=== PATIENT | male | born 1930 | race Caucasian/White ===

== ENCOUNTER 2017-11-05 07:56 | Day surgery (SDC) | payer OTHER ==
[~2017-11-05] VITALS: Ht 157.5 cm; Wt 63.3 kg
[2017-11-05] VITALS (12 sets, daily range): BP systolic 116–132; BP diastolic 69–86; PULSE 66–120; RESP 18–20; TEMP 97.7–99.2; O2SAT 98–100
[2017-11-05] MEDS ORDERED: PROPOFOL 200 MG/20 ML AMP OTHER ONE (07:57)
[2017-11-05] MEDS ORDERED: calcium P-ARTICULR (08:23)
[2017-11-05] MEDS ORDERED: ECASA81 PO (08:23)
[2017-11-05] MEDS ORDERED: ATOR10TA15 PO (08:23)
[2017-11-05] MEDS ORDERED: DILT120T PO (08:23)
[2017-11-05] MEDS ORDERED: OCUVTAB4 PO (08:23)
[2017-11-05] MEDS ORDERED: VITA250T3 PO (08:23)
[2017-11-05] MEDS ORDERED: CLOP75TA PO (08:23)
[2017-11-05] MEDS ORDERED: TAMS0.4C4 PO (08:23)
[2017-11-05] MEDS ORDERED: VITA200C3 PO (08:23)
[2017-11-05] MEDS ORDERED: OMEGCAP PO (08:23)
[2017-11-05] MEDS ORDERED: METOPROLOL TARTRATE 25 MG TAB PO PRN (08:30)
[2017-11-05] MEDS ORDERED: POVIDONE IODINE 5% (ANTISEPSIS KIT) 4 APPLICATIONS EACH NARE PRN (08:30)
[2017-11-05] MEDS ORDERED: LACTATED RINGER'S 1000 ML IV PRN (08:30)
[2017-11-05] MEDS ORDERED: INSULIN HUMAN REGULAR 1,000 UNITS/10 ML VIAL SQ PRN (08:30)
[2017-11-05] MEDS ORDERED: SODIUM CHLORID 0.9% 500 ML IV PRN (08:30)
[2017-11-05] MEDS ORDERED: CHLORHEXIDINE GLUCONATE 2 % 1 PACK (2 CLOTHS) TOPICAL PRN (08:30)
[2017-11-05] MEDS ORDERED: NS 1000 ML IV SCH (09:15)
[2017-11-05] MEDS ORDERED: CHLORHEXIDINE GLUCONATE 2 % 1 PACK (2 CLOTHS) TOPICAL SCH (09:15)
[2017-11-05] MEDS ORDERED: VANCOMYCIN 1000 MG/NS 250 ML IV SCH ×2 (09:15)
[2017-11-05] MEDS ORDERED: POVIDONE IODINE 5% (ANTISEPSIS KIT) 4 APPLICATIONS EACH NARE SCH (09:15)
[2017-11-05] MEDS ORDERED: ceFAZolin 2 GM PREMIX 50 ML IV SCH (09:15)
[2017-11-05] MEDS ORDERED: MUPIROCIN 2% OINT 1 APPLIC/GM SYR NASAL SCH (09:15)
[2017-11-05 09:28] LABS: AUTOMATED NEUTROPHIL # 7.8 TH/MM3 (1.8-7.7); BASOPHIL # 0.1 TH/MM3 (0-0.2); BASOPHIL % 0.5 % (0.0-2.0); EOSINOPHIL # 0.3 TH/MM3 (0-0.4); EOSINOPHIL % 2.3 % (0.0-4.0); HEMATOCRIT 35.7 % (39.0-51.0); HEMOGLOBIN 11.5 GM/DL (13.0-17.0); LYMPH % 25.7 % (9.0-44.0); LYMPHOCYTE # 3.3 TH/MM3 (1.0-4.8); MEAN CELL VOLUME 67.3 FL (80.0-100.0); MEAN CORPUSCULAR HEMOGLOBIN 21.7 PG (27.0-34.0); MEAN CORPUSCULAR HGB CONC 32.2 % (32.0-36.0); MEAN PLATELET VOLUME 8.1 FL (7.0-11.0); MONO % 9.9 % (0.0-8.0); MONOCYTE # 1.3 TH/MM3 (0-0.9); NEUT % 61.6 % (16.0-70.0); PLATELET COUNT 407 TH/MM3 (150-450); RED CELL DISTRIBUTION WIDTH 18.8 % (11.6-17.2); WHITE BLOOD COUNT 12.7 TH/MM3 (4.0-11.0)
[2017-11-05 09:38] LABS: INTERNATIONAL NORMALIZED RATIO 1.1 RATIO; PROTHROMBIN TIME - PATIENT 11.1 SEC (9.8-11.6)
[2017-11-05 09:45] LABS: BICARBONATE 25.3 MEQ/L (21.0-32.0); CALCIUM 8.7 MG/DL (8.5-10.1)
[2017-11-05] MEDS ORDERED: LIDOCAINE HCL 2% 20 ML VIAL ONE (10:39)
[2017-11-05] MEDS ORDERED: PROPOFOL 200 MG/20 ML AMP ONE (10:47)
[2017-11-05 11:08] LABS: CREATININE 0.87 MG/DL (0.60-1.30)
[2017-11-05] MEDS ORDERED: ePHEDrine/NS 25 MG/5 ML SYRINGE ONE (11:13)
--- NOTE | 2017-11-05 12:24 | CATHPROC ---
Patient Name: QUINITN TRAORE Study #: [id number] Initial MD: Sampson Laureano Date of : 1930 Study Date: 11/05/2017 Cardiac Catheterization Report 11/05/2017 12:24:15 PM Financial #: [id number] 1 of 9 Patient Name: QUINTIN TRAORE Study #: [id number] Initial MD: Sampson Laureano Date of : 1930 Study Date: 11/05/2017 Entire Case Report Patient Information Patient Name QUINTIN TRAORE Date of 1930 Age 87 years Financial # [id number] Gender M AlternateID Lab Number 6 Room Number DC08 Height (in) 62.0 Height (cm) 157.4 BSA 1.64 Weight (lbs) 140.1 Weight (kg) 63.7 Patient Address/Phone Number Home Address [facility] Home Phone Number [phone] [facility] [address] Study Information Study Number Admission Scheduled Start Study Start [id number] Nov 05 2017 7:56AM 11/05/2017 Nov 05 2017 10:06AM [facility] Cardiac Pacer/ICD Admit Source Facility Department Other [facility] - Operating Cost Clerk Physician and Clinical Staff Initial Sampson Menezes Welder Production Line Arc Jojo Hurtado,RN Welder Production Line Arc Gwyn Cid RCIS(BS) Other Anesthesia, MEASURER MACHINE Other Josué CLAIRE, Jennifer Evans RN Scrub Yasmine Everett RCIS TECH2 Procedures Performed Procedure Lead Revision 11/05/2017 12:24:15 PM Financial #: [id number] 2 of 9 Patient Name: QUINTIN TRAORE Study #: [id number] Initial MD: Sampson Laureano Date of : 1930 Study Date: 11/05/2017 Equipment Time Piece Work Checker Description Size Mfg Part Number Used/Scraped [id number] 11:57 [employer] IVONNE, HEMOSTAT 1 GRAM Used *[id number] 10:09 [employer] SUTURE, STRIP PLUS 1/2" * Used *[id number] 10:09 MEDLINE PACER ADHESIVE, MASTISOL 2/3CC 2/3CC 0523-48 Used 10:09 MEDLINE PACER KAY, LIMB * 2530 *[id number] Used [id number] 10:09 MEDLINE PACER PACK, PACER CUSTOM * Used *[id number] 10:09 MEDLINE PACER PEN, SKIN DUAL W/ RULER * Used *[id number] 10:52 Needle Sponge Count 2 2 Used 10:54 Needle Sponge Count 2 22 Used 11:03 Needle Sponge Count 23 1 Used 10:53 Needle Sponge Count 25 1 Used 12:01 Needle Sponge Count 3 33 Used [id number] *[id number] SUTURE, 3-0 VICRYL [SH] ([id number]) SUTURE, 3-0 VICRYL [SH] ([id number]) SUTURE, 4-0 MONOCRYL [PS2] (Y496G) [id number] 10:09 [employer],WARM AIR CCL * Used *[id number] [facility] PAD, ELECTROSURGICAL 10:09 * [id number] *[id number] Used [employer]GICAL GROUNDING ORANGE 4254-5138 10:09 [employer]. / * Used *50825 Equipment Model, Serial, Lot Number and Expiration Data Description Model Number Serial Number Lot Number Expiration Date IVONNE, HEMOSTAT [address] [id number] 07-07-2022 Insurance Information Insurance Payor Private Health Insurance Third Alliance Party Third Alliance Party Number [employer] G[employer]US O HUMCRHMO 11/05/2017 12:24:15 PM Financial #: [id number] 3 of 9 Patient Name: QUINTIN TRAORE Study #: [id number] Initial MD: Sampson Laureano Date of : 1930 Study Date: 11/05/2017 History: Allergies Allergy Reaction codeine nisoldipine procaine meperidine Sulfa (Sulfonamide Antibiotics) sulfur sulfacetamide History: Risk Factors Dyslipidemia Yes Labs Hgb (g/dl) Hct (%) WBC (l/cumm) Platelets (thousands) 11.60-17.00 35.00-51.00 4.00-11.00 150.00-450.00 11.5 35.7 12.7 407 Glucose (mg/dl) 74.00-106.00 98 Na (meq/l) K (meq/l) 136.00-145.00 3.50-5.10 140 3.6 INR (PTT:PT) 0.90-1.10 1.1 CPK-MB (ng/ML) 0.50-3.60 Not Drawn Medication Medication Total Dose (Bolus/Oral) Medication Total Dosage/Unit 2% XYLOCAINE 40 mL 11/05/2017 12:24:15 PM Financial #: [id number] 4 of 9 Patient Name: QUINTIN TRAORE Study #: [id number] Initial MD: Sampson Laureano Date of : 1930 Study Date: 11/05/2017 Medications (Bolus/Oral) Medication Time Given Dosage/Unit Administered By Reason 2% XYLOCAINE 11/05/2017 11:19:45 AM 40 mL Sampson Laureano 40 mL 2% XYLOCAINE given in lab by Sampson Laureano in Left shoulder via Subcutaneous. Ordered by Sampson Laureano. Medication (Drip) Medication Time Given Dosage/Unit Concentration/Unit Diluent (ml) Solution ANCEF 11/05/2017 10:29:26 AM 2 g Patient arrived with 2 g ANCEF infusing via Peripheral IV. VANCOMYCIN DRIP 11/05/2017 10:31:07 AM 1 g 1 g VANCOMYCIN DRIP given in lab by Richy Moses RN via Peripheral IV. Ordered by Sampson Laureano. Reaso n: As per physicians verbal order. Initial Case Assessment Cardiovascular HR Rhythm NIBP 91 AF 144/69 Edema Present Skin color Skin None Normal Warm Dry Circulatory - Right Pulses Dorsalis Pedis 1 Scale (0,1,2,3,4,d) Circulatory - Left Pulses Dorsalis Pedis 1 Scale (0,1,2,3,4,d) Circulatory - Lower Extremities Color Lower Right Color Lower Left Normal Normal Neurological State Oriented to time-place- Alert Moves all extremities person Comment: EMMONAK Respiration - General Respiration Rate SpO2 (%) (B/min) 19 98 11/05/2017 12:24:15 PM Financial #: [id number] 5 of 9 Patient Name: QUINTIN TRAORE Study #: [id number] Initial MD: Sampson Laureano Date of : 1930 Study Date: 11/05/2017 Final Case Assessment Cardiovascular HR NIBP 78 101/58 Edema Present Skin color Skin None Normal Warm Dry Circulatory - Right Pulses Dorsalis Pedis 1 Scale (0,1,2,3,4,d) Circulatory - Left Pulses Dorsalis Pedis 1 Scale (0,1,2,3,4,d) Circulatory - Lower Extremities Color Lower Right Color Lower Left Normal Normal Neurological State Drowsy Moves all extremities Comment: EMMONAK Respiration - General Respiration Rate SpO2 (%) (B/min) 18 99 Chronological Log Time Study Chronological Log 10:29:16 Patient arrived via Bed. 10:29:17 Patient Name, D.O.B, / Armband Verified By R.N. 10:29:17 Consent signed by the physician and the patient and verified by the Operating Cost Clerk staff. 10:29:18 History and physical on the chart. 10:29:18 Pre-op and post- op instructions given; patient acknowledges understanding of instructions. 10:29:18 Verbal Stimulation=2 Physical Stimulation=2 Airway=2 Respiration=2 TOTAL=8. (0=absent, 1=li mited, 2=present) 10:29:19 Presedation assessment performed by Operating Cost Clerk RN. 10:29:20 Anesthesia at bedside. Assumes care of patient. 11/05/2017 12:24:15 PM Financial #: [id number] Patient Name: QUINTIN TRAORE Study #: [id number] Initial MD: Sampson Laureano Date of : 1930 Study Date: 11/05/2017 10:29:21 Immediate Presedation assesment performed by physician. 10:29:22 Patient has been NPO for More than 6Hrs. 10:29:22 Skin Breakdown- none per pt 10:29:25 A # 20 IV was noted in the Antecubital (right). Grade = 0 0.69% with NaCl @ KVO 10:29:26 Patient arrived with 2 g ANCEF infusing via Peripheral IV. 10:29:50 Bovie ground pad applied to: Right Thigh 10:30:23 Patient Warmer Placed on the Table. 10:30:23 Dickson Prominences Protected Assessment: Initial Case, HR=91 BPM, Rhythm=AF, ZTTT=916/69 mmhg, Edema=None, Color=Normal, Ski n = Warm, Dry Right Pulses: Tony Ped=1 Left Pulses: Tony Ped=1 10:30:30 Lower Right Extremities: Color=Normal Lower Left Extremities: Color=Normal Neurological: State=Alert, Ox3, RAND, Comment=EMMONAK Respiration: Resp=19 B/min, SpO2=98 % 10:30:49 A # 20 IV was noted in the Antecubital (right). Grade = 0 0.9% NaCl @ KVO 1 g VANCOMYCIN DRIP given in lab by Richy Moses RN via Peripheral IV. Ordered by Sampson Laureano. Reason: As per :31:07 physicians verbal order. 10:31:31 2% CHLORHEXIDINE GLUCONATE WASH AND NASAL SWIPE DONE PRIOR TO PROCEDURE. 10:34:00 Table restraints applied according to hospital policy First Sponge And Instrument Count Done by Yasmine Everett, MONEY POSITION OFFICER TECH2. Hypo's: 2, Sponges: 23, Bovie/scratch: 2 10:50:09 Sutures: 5, Blades: 3, Instruments: 25, Syveck Patches: ~SYVECK PATCH~ Verified with EDUARDO CLAIRE 2 sponges were used to mop puddled prep and discarded leaving 23. 10:55:26 Left Upper Chest Prepped Times Two. 11:01:16 A sterile drape was applied after a 5 minute drying time 11:01:49 MD paged 11:03:56 MD responded 11:05:04 Reference ECG taken 11:16:32 MD arrived. Time Out. Correct patient, procedure, procedure equipment, site and side verified with physicia n present. Time 11:19:01 concurred by MD, individual staff and MEASURER MACHINE. Time Out #2 - Consents verified, patient in correct position, all results are labled and displa yed, safety precautions 11::43 taken, antibiotics administered. Time out concurred by MD, individual staff and MEASURER MACHINE in procedu re 11:19:43 Case Start 11:19:45 40 mL 2% XYLOCAINE given in lab by Sampson Laureano in Left shoulder via Subcutaneous. Ordered by Sampson Laureano. 11:20:39 Surgical Incision Made. 11:23:07 Switched out bovie for plasma blade to create the pocket, adding 1 more bovie to the count 11:26:45 A pocket was created at the Lt. upper chest. 11:32:46 Disconnecting the lead 11:36:30 The RV Lead Was Repositioned. 11/05/2017 12:24:15 PM Financial #: [id number] 7 of 9 Patient Name: QUINTIN TRAORE Study #: [id number] Initial MD: Sampson Laureano Date of : 1930 Study Date: 11/05/2017 11:36:53 Lead placement verified under fluoroscopy 11:39:02 The RV lead impedance and threshold being tested. 11:43:13 The RV lead was sutured to the fascia. 11:45:32 The RA Lead Was Revised. 11:47:37 Lead placement verified under fluoroscopy 11:48:39 The Atrial lead impedance and threshold is being tested. 11:55:20 Reconnecting the device 11:57:31 Ivonne powder administered into pocket Second Sponge And Instrument Count Done by Yasmine Everett, MONEY POSITION OFFICER TECH2. 11:58:54 Hypo's: 2, Sponges: 23, Bovie/scratch: 3 Sutures: 5, Blades: 3, Verified with EDUARDO CLAIRE 2 sponges were used to mop puddled prep and discarde d leaving 23. 11:59:03 The pocket is being closed. 12:03:12 Holding Area notified of successful intervention. 12:03:13 Bedside Report will be given. 12:03:29 DOCU called. Spoke to Ronn 12:03:57 Implant Procedure was performed. 12:04:10 A Lead Revision . (Dual) Both leads repositioned 12:14:53 Case End Final Sponge And Instrument Count Done by Yasmine Everett, MONEY POSITION OFFICER TECH2. 12:16:01 Hypo's: 2, Sponges: 23, Bovie/scratch: 3 Sutures: 5, Blades: 3, Instruments: ~INSTRU~, Syveck Patches: ~SYVECK PATCH~ Verified with KF 12:17:47 Steri-strips and a sterile dressing applied to site. 12:19:02 No case complications noted. 12:19:03 Cine recording checked. 12:19:07 Bedside Report will be given. Assessment: Final Case, HR=78 BPM, IHTP=366/58 mmhg, Edema=None, Color=Normal, Skin = Warm, Dry Right Pulses: Tony Ped=1 Left Pulses: Tony Ped=1 12:25:07 Lower Right Extremities: Color=Normal Lower Left Extremities: Color=Normal Neurological: State=Drowsy, RAND, Comment=EMMONAK Respiration: Resp=18 B/min, SpO2=99 % 12:26:29 Patient moved to bed 12:28:40 Defibrillator and ground pads removed. Skin intact. Patient transported to DOCU via bed on supplemental oxygen at 4L/min NC in stable condition wit valdemar RN and tech 12:30:48 accompanying. 11/05/2017 12:24:15 PM Financial #: [id number] Patient Name: QUINTIN TRAORE Study #: [id number] Initial MD: Sampson Laureano Date of : 1930 Study Date: 11/05/2017 End Study - Contrast Media Used In Study Contrast Total Opened (mL) Total Used (mL) Total Wasted (mL) Unspecified 0 0 0 End Study - Radiation Exposure Fluoro Time (minutes) 2.2 End Study - Patient Disposition Complications Transferred To No Telemetry Bed 11/05/2017 12:24:15 PM Financial #: [id number]
[2017-11-05] MEDS ORDERED: traMADol HCL 50 MG TAB PO PRN (12:30)
[2017-11-05] MEDS ORDERED: ACETAMINOPHEN 325 MG TAB PO PRN (12:30)
--- NOTE | 2017-11-05 12:30 | MA ---
cc: Sampson Laureano MD, Alan S MD DATE: 11/05/2017 DESCRIPTION OF PROCEDURE: Repositioning of dislodged atrial and ventricular pacemaker leads OPERATIVE NOTES: The patient was brought to the operating suite in the fasting state after having signed informed consent. The left upper chest was prepped and draped as per policy and anesthetized with 1% lidocaine. A transverse incision was made over the preexisting generator and using careful blunt dissection, including with the PlasmaBlade, the generator was freed from the subcutaneous pocket and the leads were freed from extensive scar tissue in the pocket. The suture sleeves were loosened. The leads were disconnected from the pacemaker generator. The ventricular lead was unscrewed and then repositioned at the right ventricular apex where a good current of injury, stimulation threshold (0.7 volts) and sensitivity (6.8 millivolts) were demonstrated. The lead was secured into place using 2-0 silk ties down to the pectoralis fascia. The atrial lead was then unscrewed and then repositioned in the right atrial lateral wall region where good current of injury, and stable impedance (503 ohms) was demonstrated. Sensitivity was measured at 1.7 millivolts. Stimulation threshold could not be obtained as the patient is in atrial fibrillation. The leads were then connected to the pacemaker generator, which is a Biotronik model. The leads and the generator were placed back into the subcutaneous pocket, which was closed using 3-0 Vicryl interrupted stitches in 2 layers to close the subcutaneous tissue and then 4-0 Monocryl running stitch to close the subcuticular tissue. Overlapping Steri-Strips and a dressing were applied. There were no apparent, immediate complications. CONCLUSIONS: Successful atrial and ventricular pacemaker lead repositioning, pacemaker pocket revision. Of note, the patient is in atrial fibrillation. MD STAR Rene/KIEL , 12:18 PM , 12:29 PM [facility] CENTERChrystal
[2017-11-05] MEDS ORDERED: POTASSIUM CHLORIDE 20 MEQ CONTROLLED RELEASE TAB PO ONE (20:00)
--- NOTE | 2017-11-05 20:24 | RADRPT ---
EXAM DATE: 11/05/2017 8:17 PM EDT AGE/SEX: 87 years / Male INDICATIONS: Post pacemaker lead placement. CLINICAL DATA: This is the patient's initial encounter. Patient reports that signs and symptoms have been present for 1 day and indicates a pain score of Nonresponsive. MEDICAL/SURGICAL HISTORY: . A-fib. Pacemaker. COMPARISON: [facility], XR CHEST PA AND LAT, 10/29/2017. . FINDINGS: There is a pacemaker overlying the left chest. There is no pneumothorax. There are some chronic inter stitial changes bilaterally. No new or focal areas of parenchymal consolidation are demonstrated. No evidence of pleural effusions. The heart size is stable. No significant changes compared to the prior exam. CONCLUSION: 1. Stable examination compared to the prior study. 2. No evidence of pneumothorax. Electronically signed by: Duncan Dunham MD 11/05/2017 8:22 PM EDT
[2017-11-05] MEDS ORDERED: ATORVASTATIN 10 MG TAB PO SCH (21:00)
[2017-11-05] MEDS ORDERED: VANCOMYCIN INJ 1,000 MG in SODIUM CHLOR 0.9% 250 ML INJ 250 ML IV SCH (23:30)
[2017-11-06] VITALS (15 sets, daily range): BP systolic 146–147; BP diastolic 80–84; PULSE 82–90; RESP 16–20; TEMP 98.1–99.1; O2SAT 98–99
--- NOTE | 2017-11-06 07:52 | PD.CARD.PN ---
Subjective Subjective Remarks Denies pain, dyspnea, palpitations, dizziness. Objective Medications Item Value Date Time Aspirin 81 mg 11/06/17 0900 (Ecotrin Ec) DAILY/PO Clopidogrel 75 mg 11/06/17 0900 Bisulfate DAILY/PO (Plavix) Diltiazem HCl 240 mg 11/06/17 0900 (Cardizem Cd) DAILY/PO Atorvastatin 10 mg 11/05/172099 Calcium HS/PO 11/05/172035 (Lipitor) Current Medications Medications (Trade) Dose Ordered Sig/Diya Route Start Time Stop Time Status Last Admin Lactated Ringer's 1,000 ml @ 30 mls/hr Q24H PRN IV 11/05/17 08:30 11/08/17 08:29 Sodium Chloride 500 ml @ 30 mls/hr [id number] PRN IV 11/05/17 08:30 11/08/17 08:29 (Lopressor) 25 mg EXAMINING CHAIR ASSEMBLER PRN PO 11/05/17 08:30 11/08/17 08:29 (Betadine 5% Antisepsis Kit) 1 applic EXAMINING CHAIR ASSEMBLER PRN EACH NARE 11/05/17 08:30 11/08/17 08:29 11/05/17 09:03 (Chlorhexidine 2% Cloth) 3 pack EXAMINING CHAIR ASSEMBLER PRN TOPICAL 11/05/17 08:30 11/08/17 08:29 11/05/17 09:03 (NovoLIN R INJ) See Protocol Table ... EXAMINING CHAIR ASSEMBLER PRN SQ 11/05/17 08:30 11/08/17 08:29 Sodium Chloride 1,000 ml @ 30 mls/hr Q24H IV 11/05/17 09:15 Cefazolin Sodium/ Dextrose 50 ml @ 100 mls/hr EXAMINING CHAIR ASSEMBLER IV 11/05/17 09:15 11/08/17 09:14 11/05/17 10:29 Vancomycin HCl 1000 mg/Sodium Chloride 250 ml @ 250 mls/hr EXAMINING CHAIR ASSEMBLER IV 11/05/17 09:15 11/08/17 09:14 11/05/17 10:31 (Betadine 5% Antisepsis Kit) 2 applic EXAMINING CHAIR ASSEMBLER EACH NARE 11/05/17 09:15 11/08/17 09:14 (Bactroban Nasal 2% Oint) 1 applic EXAMINING CHAIR ASSEMBLER NASAL 11/05/17 09:15 11/08/17 09:14 (Chlorhexidine 2% Cloth) 3 pack EXAMINING CHAIR ASSEMBLER TOPICAL 11/05/17 09:15 11/08/17 09:14 (Tylenol) 325 mg Q6H PRN PO 11/05/17 12:30 (Ultram) 50 mg Q6HR PRN PO 11/05/17 12:30 (Ecotrin Ec) 81 mg DAILY PO 11/06/17 09:00 (Lipitor) 10 mg HS PO 11/05/17 21:00 11/05/17 20:36 (Plavix) 75 mg DAILY PO 11/06/17 09:00 (Flomax) 0.4 mg DAILY PO 11/06/17 09:00 (Cardizem Cd) 240 mg DAILY PO 11/06/17 09:00 Vital Signs / I&O Vital Signs Date Time Temp Pulse Resp B/P (MAP) Pulse Ox O2 Delivery O2 Flow Rate FiO2 11/06/17 06:00 86 11/06/17 05:00 83 11/06/17 04:00 84 11/06/17 03:25 99.1 90 20 146/80 (102) 98 11/06/17 03:00 86 11/06/17 02:00 89 11/06/17 01:00 89 11/06/17 00:00 88 11/05/17 23:03 99.2 86 20 121/71 (88) 98 11/05/17 23:00 107 11/05/17 22:00 84 11/05/17 21:00 118 11/05/17 20:00 120 11/05/17 19:34 98.3 111 20 116/69 (85) 100 11/05/17 19:00 107 11/05/17 18:23 110 11/05/17 17:22 95 11/05/17 17:11 97.7 87 18 116/76 (89) 99 11/05/17 13:45 100 Room Air 11/05/17 08:45 98.0 106 18 129/83 (98) 100 I/O 11/05/17 11/05/17 11/05/17 11/06/17 11/06/17 11/06/17 07:00 15:00 23:00 07:00 15:00 23:00 Intake Total 250 ml 240 ml Output Total 250 ml 550 ml Balance 0 ml -310 ml Intake Oral 250 ml 240 ml Output Urine Total 250 ml 550 ml Physical Exam Pacer site clean, dry, intact, no hematoma. Minimal tenderness. No erythema. Laboratory Laboratory Tests Test 11/05/17 08:30 White Blood Count 12.7 TH/MM3 Red Blood Count 5.30 MIL/MM3 Hemoglobin 11.5 GM/DL Hematocrit 35.7 % Mean Corpuscular Volume 67.3 FL Mean Corpuscular Hemoglobin 21.7 PG Mean Corpuscular Hemoglobin Concent 32.2 % Red Cell Distribution Width 18.8 % Platelet Count 407 TH/MM3 Mean Platelet Volume 8.1 FL Neutrophils (%) (Auto) 61.6 % Lymphocytes (%) (Auto) 25.7 % Monocytes (%) (Auto) 9.9 % Eosinophils (%) (Auto) 2.3 % Basophils (%) (Auto) 0.5 % Neutrophils # (Auto) 7.8 TH/MM3 Lymphocytes # (Auto) 3.3 TH/MM3 Monocytes # (Auto) 1.3 TH/MM3 Eosinophils # (Auto) 0.3 TH/MM3 Basophils # (Auto) 0.1 TH/MM3 CBC Comment DIFF FINAL Differential Comment Prothrombin Time 11.1 SEC Prothromb Time International Ratio 1.1 RATIO Activated Partial Thromboplast Time 27.4 SEC Blood Urea Nitrogen 16 MG/DL Creatinine 0.87 MG/DL Random Glucose 98 MG/DL Calcium Level 8.7 MG/DL Sodium Level 140 MEQ/L Potassium Level 3.6 MEQ/L Chloride Level 105 MEQ/L Carbon Dioxide Level 25.3 MEQ/L Anion Gap 10 MEQ/L Estimat Glomerular Filtration Rate 83 ML/MIN Assessment and Plan Problem List: (1) Status post placement of cardiac pacemaker ICD Codes: Z95.0 - Presence of cardiac pacemaker Status: Acute Plan: Pacer re-interrogation pending. Pacer site OK. If pacing parameters suboptimal, have recommended going back to OR for new leads. (2) Wide-complex tachycardia ICD Codes: I47.2 - Ventricular tachycardia Status: Acute Plan: Coverage called for VT last night. Rhythm strips more consistent with ventricular paced salvoes. (3) Paroxysmal atrial fibrillation ICD Codes: I48.0 - Paroxysmal atrial fibrillation Status: Chronic Plan: Stable. No HR control issues. Patient felt by Dr. Treviño to be poor candidate for oral anticoagulation therapy. Continue Cardizem. Code Status full code Discussed Condition With patient Sampson Laureano MD November 06, 2017 07:52
[2017-11-06] MEDS ORDERED: DILTIAZEM-CD 240 MG CAP ER PO SCH (09:00)
[2017-11-06] MEDS ORDERED: CLOPIDOGREL 75 MG TAB PO SCH (09:00)
[2017-11-06] MEDS ORDERED: TAMSULOSIN HCL 0.4 MG CAP PO SCH (09:00)
[2017-11-06] MEDS ORDERED: ASPIRIN EC 81 MG TABEC PO SCH (09:00)
[2017-11-06] MEDS ORDERED: CALC12502 PO (10:25)
--- NOTE | 2017-11-06 14:10 | EKG ---
Date Performed: 11/05/2017 Time Performed: 18:29:34 PTAGE: 87 years EKG: Atrial fibrillation with rapid ventricular response with PVC(s) Left axis deviation Possibl e anterior infarct - age undetermined Inferior T wave changes are nonspecific Low QRS voltages in pre cordial leads Abnormal ECG PREVIOUS TRACING : 11/05/2017 08.52 DOCTOR: Cisco Berg Interpretating Date/Time 11/06/2017 14:09:20
--- NOTE | 2017-11-06 14:33 | EKG ---
Date Performed: 11/05/2017 Time Performed: 08:52:26 PTAGE: 87 years EKG: Atrial fibrillation with rapid ventricular response Demand atrial pacing. Leftward axis Inf erior T wave changes are nonspecific Low QRS voltages in precordial leads Abnormal ECG NO PREVIOUS TRACING DOCTOR: Cisco Berg Interpretating Date/Time 11/06/2017 14:31:51
== END 2017-11-06 14:37 | disposition home or self-care (01) ==
LOC: HDOC 07:56 → HDIC 07:58 → HCIS 17:00 → HDOC 11-06 14:37
PROVIDERS: ATTEND Internal Medicine Cardiovascular Disease
DX: Z45.018 Encounter for adjustment and management of other part of cardiac pacemaker (principal); T82.120A Displacement of cardiac electrode, initial encounter; I49.5 Sick sinus syndrome; I65.29 Occlusion and stenosis of unspecified carotid artery; I34.0 Nonrheumatic mitral (valve) insufficiency; I47.2 Ventricular tachycardia; G89.4 Chronic pain syndrome; G62.9 Polyneuropathy, unspecified; I35.1 Nonrheumatic aortic (valve) insufficiency; I73.9 Peripheral vascular disease, unspecified; I48.91 Unspecified atrial fibrillation; D64.9 Anemia, unspecified; Z79.82 Long term (current) use of aspirin
CPT/HCPCS: 00530; 33215; 33222; 71045; 80048; 85025; 85610; 85730; 93005; J0690; J3370; J7050

== ENCOUNTER 2017-11-10 09:14 | Observation (INO) | payer OTHER, MEDICAID ==
[2017-11-10] VITALS (10 sets, daily range): BP systolic 108–171; BP diastolic 58–92; PULSE 88–145; RESP 14–24; TEMP 97.6–98.7; O2SAT 98–100
[~2017-11-10] VITALS: Ht 162.6 cm; Wt 70.0 kg
[~2017-11-10 09:14] MED LIST: ATOR10TA15 PO; CALC12502 PO; CLOP75TA PO; DILT120T PO; ECASA81 PO; OCUVTAB4 PO; OMEGCAP PO; TAMS0.4C4 PO; VITA200C3 PO; VITA250T3 PO
[2017-11-10] MEDS ORDERED: SODIUM CHLORIDE 0.9% FLUSH 10 ML FLUSH IVF PRN (09:45)
[2017-11-10] MEDS ORDERED: ASPIRIN 81 MG CHEW TAB PO ONE (09:45)
[2017-11-10] MEDS ORDERED: DILTIAZEM-CD 240 MG CAP ER PO ONE (09:45)
[2017-11-10 10:04] LABS: AUTOMATED NEUTROPHIL # 8.9 TH/MM3 (1.8-7.7); BASOPHIL # 0.1 TH/MM3 (0-0.2); BASOPHIL % 0.6 % (0.0-2.0); EOSINOPHIL # 0.3 TH/MM3 (0-0.4); EOSINOPHIL % 1.9 % (0.0-4.0); HEMATOCRIT 34.4 % (39.0-51.0); HEMOGLOBIN 10.8 GM/DL (13.0-17.0); LYMPH % 21.8 % (9.0-44.0); LYMPHOCYTE # 2.9 TH/MM3 (1.0-4.8); MEAN CORPUSCULAR HEMOGLOBIN 21.5 PG (27.0-34.0); MEAN CORPUSCULAR HGB CONC 31.5 % (32.0-36.0); MEAN PLATELET VOLUME 7.9 FL (7.0-11.0); MONO % 9.5 % (0.0-8.0); MONOCYTE # 1.3 TH/MM3 (0-0.9); NEUT % 66.2 % (16.0-70.0); PLATELET COUNT 430 TH/MM3 (150-450); RED BLOOD COUNT 5.05 MIL/MM3 (4.50-5.90); RED CELL DISTRIBUTION WIDTH 19.3 % (11.6-17.2); WHITE BLOOD COUNT 13.4 TH/MM3 (4.0-11.0)
--- NOTE | 2017-11-10 10:11 | RADRPT ---
EXAM DATE: 11/10/2017 10:02 AM EDT AGE/SEX: 87 years / Male INDICATIONS: Cough and bilateral chest pain after recent pacemaker placement. CLINICAL DATA: This is the patient's initial encounter. Patient reports that signs and symptoms have been present for 2 days and indicates a pain score of 6/10. MEDICAL/SURGICAL HISTORY: . Atrial fibrillation. Pacemaker. COMPARISON: [facility] [place], [place]/05/[place]. . FINDINGS: A single AP view of the chest demonstrates the lungs to be symmetrically aerated without evidence of mass, infiltrate or effusion. Dual lead pacemaker. Heart size appears normal. Osseous structures are intact. CONCLUSION: Negative examination. Electronically signed by: Sandy Lopez MD 11/10/2017 10:10 AM EDT
[2017-11-10 10:16] LABS: INTERNATIONAL NORMALIZED RATIO 1.1 RATIO; PROTHROMBIN TIME - PATIENT 11.2 SEC (9.8-11.6)
[2017-11-10 10:41] LABS: ALBUMIN 2.8 GM/DL (3.4-5.0); AST (GOT) 15 U/L (15-37); BICARBONATE 24.3 MEQ/L (21.0-32.0); BLOOD UREA NITROGEN 17 MG/DL (7-18); CALCIUM 8.3 MG/DL (8.5-10.1); CHLORIDE 105 MEQ/L (98-107); CREATININE 0.74 MG/DL (0.60-1.30); GLOMERULAR FILTRATION RATE 100 ML/MIN (>89); GLUCOSE,RANDOM 109 MG/DL (74-106); SODIUM (NA) 140 MEQ/L (136-145)
[2017-11-10 10:46] LABS: ALKALINE PHOSPHATASE 76 U/L (45-117); ALT (GPT) 16 U/L (12-78); TOTAL BILIRUBIN ADULT 0.5 MG/DL (0.2-1.0); TOTAL PROTEIN 7.1 GM/DL (6.4-8.2); TROPONIN I LESS THAN 0.02 NG/ML (0.02-0.05)
[2017-11-10] MEDS ORDERED: METOPROLOL TARTRATE 5 MG/5 ML VIAL IV PUSH STA (10:52)
--- NOTE | 2017-11-10 13:09 | PD ---
HPI Chief Complaint: Chest Pain Time Seen by Provider: 09:26 Travel History International Travel<30 days: No Contact w/Intl Traveler<30days: No Traveled to known affect area: No History of Present Illness HPI Patient is an 87-year-old male who comes in complaining of chest pain. He says the pain has been on and off since having revision of his pacemaker done last week. Does report some occasional shortness of breath. He denies nausea or vomiting. Patient is a poor historian. He did not take his Cardizem this morning. Severity is mild to moderate. PFSH Past Medical History Cancer: Yes (PROSTATE, NONHODGKINS LYMPHOMA) Cardiovascular Problems: Yes (AFIB, MR, PM, SSS) Chest Pain: No Diabetes: No Gastrointestinal Disorders: No Glaucoma: No Hepatitis: No Hiatal Hernia: No Hypertension: No Respiratory: No Integumentary: No Thyroid Disease: No Past Surgical History Cardiac Surgery: Yes (pacemaker ) Thoracic Surgery: Yes (PM INSERT-MARYURI) Other Surgery: Yes Social History Alcohol Use: No Tobacco Use: No Substance Use: No Allergies-Medications (Allergen,Severity, Reaction): Coded Allergies: sulfacetamide (Verified Allergy, Severe, 11/10/17) sulfur (Verified Allergy, Severe, 11/10/17) Sulfa (Sulfonamide Antibiotics) (Unverified Allergy, Unknown, 11/10/17) codeine (Unverified Allergy, Unknown, 11/10/17) meperidine (Unverified Allergy, Unknown, 11/10/17) procaine (Unverified Allergy, Unknown, 11/10/17) Reported Meds & Prescriptions Reported Meds & Active Scripts Active Reported Levofloxacin 500 Mg Tablet 500 Mg PO DAILY Levofloxacin 500 Mg Tablet 500 Mg PO DAILY Calcium (Oyster Shell) 500 Mg Calcium (1250 Mg) Tab 500 Mg PO DAILY Vitamin E 200 Unit Cap 400 Units PO DAILY Vitamin C (Ascorbic Acid) 250 Mg Tab 500 Mg PO Tamsulosin (Tamsulosin HCl) 0.4 Mg Cap 0.4 Mg PO DAILY Preservision Areds (Multiple Vitamins W/ Minerals) 1 Tab 1 Tab PO DAILY [place]-3 Fish Oil/Vitamin (Fish Oil-Cholecalciferol) 1,000-1,000 Mg Cap 1 Cap PO DAILY Diltiazem (Diltiazem HCl) 120 Mg Tab 240 Mg PO DAILY Clopidogrel (Clopidogrel Bisulfate) 75 Mg Tab 75 Mg PO DAILY Atorvastatin (Atorvastatin Calcium) 10 Mg Tab 10 Mg PO HS Aspirin DR (Aspirin) 81 Mg Tabdr 81 Mg PO DAILY Review of Systems Except as stated in HPI: all other systems reviewed are Neg General / Constitutional: No: Fever, Chills HENT: No: Headaches, Lightheadedness Cardiovascular: Positive: Chest Pain or Discomfort Gastrointestinal: No: Nausea, Vomiting Musculoskeletal: No: Myalgias, Edema Skin: No Rash, No Change in Pigmentation Physical Exam Narrative GENERAL: Awake and alert, in no acute distress. SKIN: Focused skin assessment warm/dry. HEAD: Atraumatic. Normocephalic. EYES: Pupils equal and round. No scleral icterus. ENT: Mucous membranes pink and moist. NECK: Trachea midline. No JVD. CARDIOVASCULAR: tachycardia. No murmur appreciated. RESPIRATORY: No accessory muscle use. Clear to auscultation. Breath sounds equal bilaterally. GASTROINTESTINAL: Abdomen soft, non-tender, nondistended. Hepatic and splenic margins not palpable. MUSCULOSKELETAL: No obvious deformities. No clubbing. No cyanosis. No edema. NEUROLOGICAL: Awake and alert. No obvious cranial nerve deficits. Motor grossly within normal limits. Normal speech. PSYCHIATRIC: Appropriate mood and affect; insight and judgment normal. Data Data Last Documented VS Vital Signs Date Time Temp Pulse Resp B/P (MAP) Pulse Ox O2 Delivery O2 Flow Rate FiO2 11/10/17 12:14 98 16 114/66 (82) 98 Room Air 11/10/17 09:16 98.7 Orders Orders Ckmb (Isoenzyme) Profile (11/10/17 09:37) Complete Blood Count With Diff (11/10/17 09:37) Comprehensive Metabolic Panel (11/10/17 09:37) Prothrombin Time / Inr (Pt) (11/10/17 09:37) Act Partial Throm Time (Ptt) (11/10/17 09:37) Troponin I (11/10/17 09:37) Chest, Single Ap (11/10/17 09:37) Ecg Monitoring (11/10/17 09:37) Bilateral Bp Monitoring (11/10/17 09:37) Iv Access Insert/Monitor (11/10/17 09:37) Oximetry (11/10/17 09:37) Oxygen Administration (11/10/17 09:37) Aspirin Chew (Aspirin Chew) (11/10/17 09:45) Sodium Chloride 0.9% Flush (Ns Flush) (11/10/17 09:45) Diltiazem Cd (Cardizem Cd) (11/10/17 09:45) Metoprolol Tartrate Inj (Lopressor Inj) (11/10/17 10:52) Electrocardiogram (11/10/17 09:26) Admit Order (Ed Use Only) (11/10/17 ) Labs Laboratory Tests Test 11/10/17 09:40 White Blood Count 13.4 TH/MM3 Red Blood Count 5.05 MIL/MM3 Hemoglobin 10.8 GM/DL Hematocrit 34.4 % Mean Corpuscular Volume 68.0 FL Mean Corpuscular Hemoglobin 21.5 PG Mean Corpuscular Hemoglobin Concent 31.5 % Red Cell Distribution Width 19.3 % Platelet Count 430 TH/MM3 Mean Platelet Volume 7.9 FL Neutrophils (%) (Auto) 66.2 % Lymphocytes (%) (Auto) 21.8 % Monocytes (%) (Auto) 9.5 % Eosinophils (%) (Auto) 1.9 % Basophils (%) (Auto) 0.6 % Neutrophils # (Auto) 8.9 TH/MM3 Lymphocytes # (Auto) 2.9 TH/MM3 Monocytes # (Auto) 1.3 TH/MM3 Eosinophils # (Auto) 0.3 TH/MM3 Basophils # (Auto) 0.1 TH/MM3 CBC Comment DIFF FINAL Differential Comment Prothrombin Time 11.2 SEC Prothromb Time International Ratio 1.1 RATIO Activated Partial Thromboplast Time 27.1 SEC Blood Urea Nitrogen 17 MG/DL Creatinine 0.74 MG/DL Random Glucose 109 MG/DL Total Protein 7.1 GM/DL Albumin 2.8 GM/DL Calcium Level 8.3 MG/DL Alkaline Phosphatase 76 U/L Aspartate Amino Transf (AST/SGOT) 15 U/L Alanine Aminotransferase (ALT/SGPT) 16 U/L Total Bilirubin 0.5 MG/DL Sodium Level 140 MEQ/L Potassium Level 3.4 MEQ/L Chloride Level 105 MEQ/L Carbon Dioxide Level 24.3 MEQ/L Anion Gap 11 MEQ/L Estimat Glomerular Filtration Rate 100 ML/MIN Total Creatine Kinase 62 U/L Troponin I LESS THAN 0.02 NG/ML MDM Medical Decision Making Medical Screen Exam Complete: Yes Emergency Medical Condition: Yes Medical Record Reviewed: Yes Interpretation(s) ECG shows afib Differential Diagnosis ACS vs afib with RVR vs surgical complication Narrative Course Patient is a 87 year old male who comes in complaining of chest pain. He has had the pain on and off since having revision of his pacemaker on Saturday. His rate was not controlled today, he was given his home Cardizem and a dose of IV metoprolol with rate control achieved. IV established, labs sent. Labs show no acute abnormalities. I spoke with Dr. Berg, covering for Georgi who suggests [facility] admission and starting Metoprolol . Diagnosis Primary Impression: Chest pain Qualified Codes: R07.9 - Chest pain, unspecified Additional Impression: Afib Qualified Codes: I48.2 - Chronic atrial fibrillation Admitting Information Admitting Physician Requests: Deanne Campbell MD Nov 10, 2017 13:09
[2017-11-10] MEDS ORDERED: ACETAMINOPHEN 500 MG CPLT PO PRN (13:30)
[2017-11-10] MEDS ORDERED: NITROGLYCERIN 0.4 MG SL 25 TABS/BTL SL PRN (13:30)
[2017-11-10] MEDS ORDERED: ONDANSETRON ODT 4 MG TAB PO PRN (13:30)
[2017-11-10 14:53] LABS: TROPONIN I LESS THAN 0.02 NG/ML (0.02-0.05)
--- NOTE | 2017-11-10 15:06 | HHI.HP ---
[facility] Primary Care Physician Rachel Dominguez MD Chief Complaint Chest pain History of Present Illness 87-year-old male with history of sick sinus syndrome, paroxysmal A. fib, peripheral vascular disease, and prostate cancer presents emergency room for further evaluation of chest pain. States Dr Laureano made adjustment of his pacemaker on Saturday. The next day developed substernal chest pressure. States the first couple of days were "not too bad, but became worse yesterday." States his daughter encouraged him to come to the ER yesterday for further evaluation, however he declined. Pressure continued into the night and at 4 AM decided to call a taxi to bring him to the ER. No particular movement or position made pain better or worse. No associated symptoms of nausea, vomiting , or diaphoresis. Taking a deep breath makes pain worse. Review of Systems General: No fatigue,weakness, fever, chills, recent illness, or change in appetite. Pacemaker adjustment 11/05/17. HEENT: No RAYA, no vision changes, no nasal congestion or drainage, no dysphasia CV: Continues to have chest pressure as stated above. RESP: No SOB, cough, or wheeze. GI: No nausea, vomiting, or bowel changes. : No dysuria, urgency, frequency MS: Status post pacemaker adjustment surgery 11/05/17, large bandage and Steri- Strips in place. No change in ROM NEURO: No change in memory, LOC, motor/sensory deficits PSYCH: No anxiety, depression SKIN: No rashes, no concerning lesions Past Family Social History Allergies: Coded Allergies: sulfacetamide (Verified Allergy, Severe, 11/10/17) sulfur (Verified Allergy, Severe, 11/10/17) Sulfa (Sulfonamide Antibiotics) (Unverified Allergy, Unknown, 11/10/17) codeine (Unverified Allergy, Unknown, 11/10/17) meperidine (Unverified Allergy, Unknown, 11/10/17) procaine (Unverified Allergy, Unknown, 11/10/17) Past Medical History Paroxysmal A. fib, paroxysmal SVT, sick sinus syndrome (08/25-four second pauses- dual pacemaker), PVD, prostate cancer (1998), mitral regurgitation (mild-mod echo), aortic regurgitation, right iliac stent, carotid artery stenosis ( mild 10/21), chronic pain syndrome, colon polyps, fatigue, neuropathy, non- Hodgkin's lymphoma, osteoarthritis, palpitations, thoracic aortic aneurysm (4.8 cm ascending), GERD, Cataracts, Lung nodules, Lymphoma (Stage III,) Past Surgical History Left femoral popliteal bypass, pacemaker placement, appendectomy (1949), left and right inguinal hernia repair, prostatectomy (1998), cataract surgery, hemorrhoidectomy Reported Medications Reported Meds & Active Scripts Active Reported Calcium (Oyster Shell) 500 Mg Calcium (1250 Mg) Tab 500 Mg PO DAILY Vitamin E 200 Unit Cap 400 Units PO DAILY Vitamin C (Ascorbic Acid) 250 Mg Tab 500 Mg PO Tamsulosin (Tamsulosin HCl) 0.4 Mg Cap 0.4 Mg PO DAILY Preservision Areds (Multiple Vitamins W/ Minerals) 1 Tab 1 Tab PO DAILY [place]-3 Fish Oil/Vitamin (Fish Oil-Cholecalciferol) 1,000-1,000 Mg Cap 1 Cap PO DAILY Diltiazem (Diltiazem HCl) 120 Mg Tab 240 Mg PO DAILY Clopidogrel (Clopidogrel Bisulfate) 75 Mg Tab 75 Mg PO DAILY Atorvastatin (Atorvastatin Calcium) 10 Mg Tab 10 Mg PO HS Aspirin DR (Aspirin) 81 Mg Tabdr 81 Mg PO DAILY Active Ordered Medications Current Medications Medications (Trade) Dose Ordered Sig/Diya Route Start Time Stop Time Status Last Admin (NS Flush) 2 ml UNSCH PRN IVF 11/10/17 09:45 (NS Flush) 2 ml BID IV FLUSH 11/10/17 21:00 (Tylenol) 500 mg Q4H PRN PO 11/10/17 13:30 (Nitrostat Sl) 0.4 mg Q5M PRN SL 11/10/17 13:30 (Aspirin) 325 mg DAILY PO 11/11/17 09:00 (Zofran Odt) 4 mg Q6H PRN PO 11/10/17 13:30 Social History No history of ME, cardiac stents, hyperlipidemia, or diabetes. Known hypertension. Remote smoker quitting over 50 years ago. Smoked for 10 years. . Lives with a friend, daughter lives close to him as well. Ambulates with a walker. Past cardiac testing No recent cardiac testing. Records reviewed chemical stress testing completed [address] Treviño. Physical Exam Vital Signs Vital Signs Date Time Temp Pulse Resp B/P (MAP) Pulse Ox O2 Delivery O2 Flow Rate FiO2 11/10/17 14:14 88 108/58 (75) 11/10/17 12:14 98 16 114/66 (82) 98 Room Air 11/10/17 11:24 88 16 124/63 (83) 98 Room Air 11/10/17 11:16 112 14 98 Room Air 11/10/17 11:11 96 18 136/70 (92) 98 Room Air 11/10/17 09:29 91 16 171/92 (118) 100 Room Air 11/10/17 09:16 98.7 145 24 141/84 (103) 100 Physical Exam GENERAL: Alert WN, WD, NAD, pleasant, elderly male, poor historian, mildly impaired memory, possible mild dementia HEAD: NC, AT CV: Rate regularly, irregular, with 2/6 systolic and diastolic murmur, no rub or gallop. S1-S2 no S3-S4. Left femoral bruit greater right femoral bruit. No iliac bruits, no carotid bruits. Left inframammary area pain reproduced with palpation. Bruising left anterior chest with steri-strips intact with large bandage in place. RESP: Diminished lungs throughout bilateral, no crackles, wheeze, or rhonchi, symmetrical chest rise, nonlabored, able to speak in full sentences ABD: Soft, NT, ND, no masses, positive bowel tones EXT: Pulses +2x4, no dependent edema MS: Normal tone x4 extremities, nontender, no obvious deformities, full range of motion NEURO: CN II through CN XII grossly intact, motor strength 5/5 PSYCH: A+O x3, pleasant affect, appropriate speech, mood, questionable insight and judgment SKIN: Normal turgor, normal texture, no lesions, no rashes, brisk cap refill Laboratory Laboratory Tests Test 11/10/17 09:40 11/10/17 14:08 White Blood Count 13.4 Red Blood Count 5.05 Hemoglobin 10.8 Hematocrit 34.4 Mean Corpuscular Volume 68.0 Mean Corpuscular Hemoglobin 21.5 Mean Corpuscular Hemoglobin Concent 31.5 Red Cell Distribution Width 19.3 Platelet Count 430 Mean Platelet Volume 7.9 Neutrophils (%) (Auto) 66.2 Lymphocytes (%) (Auto) 21.8 Monocytes (%) (Auto) 9.5 Eosinophils (%) (Auto) 1.9 Basophils (%) (Auto) 0.6 Neutrophils # (Auto) 8.9 Lymphocytes # (Auto) 2.9 Monocytes # (Auto) 1.3 Eosinophils # (Auto) 0.3 Basophils # (Auto) 0.1 CBC Comment DIFF FINAL Differential Comment Prothrombin Time 11.2 Prothromb Time International Ratio 1.1 Activated Partial Thromboplast Time 27.1 Blood Urea Nitrogen 17 Creatinine 0.74 Random Glucose 109 Total Protein 7.1 Albumin 2.8 Calcium Level 8.3 Alkaline Phosphatase 76 Aspartate Amino Transf (AST/SGOT) 15 Alanine Aminotransferase (ALT/SGPT) 16 Total Bilirubin 0.5 Sodium Level 140 Potassium Level 3.4 Chloride Level 105 Carbon Dioxide Level 24.3 Anion Gap 11 Estimat Glomerular Filtration Rate 100 Total Creatine Kinase 62 Troponin I LESS THAN 0.02 Result Diagram: 11/10/1793911/10/17939 Imaging Last 48 hours Impressions Chest X-Ray 11/10/17936 Signed Impressions: CONCLUSION: Negative examination. Course EKG First EKG atrial fibrillation with rapid ventricular response, with one ventricular placed beat, mild st depression, Second EKG atrial fibrillation, with ventricular paced beats, no ST T segment change Caprini VTE Risk Assessment Caprini VTE Risk Assessment: Mod/High Risk (score >= 2) Caprini Risk Assessment Model Point Value = 1 Point Value = 2 Point Value = 3 Point Value = 5 Age 41-60 Minor surgery BMI > 25 kg/m2 Swollen legs Varicose veins or History of unexplained or recurrent spontaneous Oral contraceptives or hormone replacement Sepsis (< 1 month) Serious lung disease, including pneumonia (< 1 month) Abnormal pulmonary function Acute myocardial infarction Congestive heart failure (< 1 month) History of inflammatory bowel disease Medical patient at bed rest Age 61-74 Arthroscopic surgery Major open surgery (> 45 min) Laparoscopic surgery (> 45 min) Malignancy Confined to bed (> 72 hours) Immobilizing plaster cast Central venous access Age >= 75 History of VTE Family history of VTE Factor V Leiden Prothrombin [id number] Lupus anticoagulant Anticardiolipin antibodies Elevated serum homocysteine Heparin-induced thrombocytopenia Other congenital or acquired thrombophilia Stroke (< 1 month) Elective arthroplasty Hip, pelvis, or leg fracture Acute spinal cord injury (< 1 month) Prophylaxis Regimen Total Risk Factor Score Risk Level Prophylaxis Regimen 0-1 Low Early ambulation 2 Moderate Order ONE of the following: *Sequential Compression Device (SCD) *Heparin 5000 units SQ BID 3-4 Higher Order ONE of the following medications: *Heparin 5000 units SQ TID *Enoxaparin/Lovenox 40 mg SQ daily (WT < 150 kg, CrCl > 30 mL/min) *Enoxaparin/Lovenox 30 mg SQ daily (WT < 150 kg, CrCl > 10-29 mL/min) *Enoxaparin/Lovenox 30 mg SQ BID (WT < 150 kg, CrCl > 30 mL/min) AND/OR *Sequential Compression Device (SCD) 5 or more Highest Order ONE of the following medications: *Heparin 5000 units SQ TID (Preferred with Epidurals) *Enoxaparin/Lovenox 40 mg SQ daily (WT < 150 kg, CrCl > 30 mL/min) *Enoxaparin/Lovenox 30 mg SQ daily (WT < 150 kg, CrCl > 10-29 mL/min) *Enoxaparin/Lovenox 30 mg SQ BID (WT < 150 kg, CrCl > 30 mL/min) AND *Sequential Compression Device (SCD) Assessment and Plan Assessment and Plan #1 Atypical chest pain-admitted to chest pain center. Begin ruling out ACS with protocol. Will be seen and evaluated by Dr. Gal Frost. Discomfort appears to be musculoskeletal in nature. Most likely will rule out ACS monitor on telemetry and discharge in a.m. Will also call Dr. Treviño in a.m to make aware of patient admission to [facility]. Start metoprolol 25 mg BID, first dose this evening. Call will be placed in morning to Dr. Treviño. Likely will discharge in morning and will be instructed to keep follow up appointment with Dr. Laureano on Saturday. This has been discussed in length with family and all are agreeable to plan of care. Sarai Albrecht Nov 10, 2017 15:06
--- NOTE | 2017-11-10 17:23 | EKG ---
Date Performed: 11/10/2017 Time Performed: 09:26:51 PTAGE: 87 years EKG: ATRIAL FIBRILLATION WITH RAPID VENTRICULAR RESPONSE WITH ONE PACE VENTRICULAR BEAT SEEN AFT ER AN APPROPRIATE PAUSE GENERALIZED LOW VOLTAGE NONSPECIFIC ST-T CHANGE Compared to previous tracing, ventricular response to the atrial fibrillation is more rapid. ST-T changes are slightly more promin ent, which may be rate-related ABNORMAL ECG PREVIOUS TRACING : 11/05/2017 18.29 DOCTOR: Gal Frost Interpretating Date/Time 11/10/2017 17:21:29
--- NOTE | 2017-11-10 17:29 | EKG ---
Date Performed: 11/10/2017 Time Performed: 14:12:23 PTAGE: 87 years EKG: atrial fibrillation ELECTRONIC VENTRICULAR PACEMAKER -- CONTOUR ANALYSIS BASED ON INTRINSIC RHYTHM ABNORMAL RHYTHM ECG PREVIOUS TRACING : 11/10/2017 09.26 Since previous tracing, no significant change noted DOCTOR: Gal Frost Interpretating Date/Time 11/10/2017 17:27:42
[2017-11-10 18:27] LABS: TROPONIN I LESS THAN 0.02 NG/ML (0.02-0.05)
[2017-11-10] MEDS ORDERED: LEVO500T8 PO ×2 (19:19→19:20)
[2017-11-10] MEDS: SODIUM CHLORIDE 0.9% FLUSH 10 ML FLUSH IV FLUSH SCH (20:25)
[2017-11-10] MEDS: METOPROLOL TARTRATE 25 MG TAB PO SCH (20:26)
[2017-11-10] MEDS ORDERED: ATORVASTATIN 10 MG TAB PO SCH (21:00)
[2017-11-11 00:01] VITALS: BP 139/91; PULSE 108; RESP 16; TEMP 98; O2SAT 98
[2017-11-11 04:00] VITALS: PULSE 93
[2017-11-11 04:18] VITALS: BP 101/61; PULSE 91; RESP 16; TEMP 98; O2SAT 99
[2017-11-11 07:20] VITALS: PULSE 108
[2017-11-11 08:00] VITALS: BP 119/71; PULSE 106; RESP 20; TEMP 97.5
--- NOTE | 2017-11-11 08:18 | PD.CARD.PN ---
Subjective Subjective Remarks Reports chest discomfort much improved. Now has complaints of constipation reporting last bowel movement 6 days ago, requesting laxative. Objective Medications Current Medications Medications (Trade) Dose Ordered Sig/Diya Route Start Time Stop Time Status Last Admin (NS Flush) 2 ml UNSCH PRN IVF 11/10/17 09:45 (NS Flush) 2 ml BID IV FLUSH 11/10/17 21:00 11/10/17 20:25 (Tylenol) 500 mg Q4H PRN PO 11/10/17 13:30 (Nitrostat Sl) 0.4 mg Q5M PRN SL 11/10/17 13:30 (Zofran Odt) 4 mg Q6H PRN PO 11/10/17 13:30 (Lopressor) 25 mg Q12HR PO 11/10/17 21:00 11/10/17 20:26 (Ecotrin Ec) 81 mg DAILY PO 11/11/17 09:00 (Lipitor) 10 mg HS PO 11/10/17 21:00 11/10/17 20:26 (Plavix) 75 mg DAILY PO 11/11/17 09:00 (Oscal) 500 mg DAILY PO 11/11/17 09:00 (Flomax) 0.4 mg DAILY PO 11/11/17 09:00 (Cardizem Cd) 240 mg DAILY PO 11/11/17 09:00 (Ocuvite) 1 tab DAILY PO 11/11/17 09:00 (Vitamin E) 400 units DAILY PO 11/11/17 09:00 Vital Signs / I&O Vital Signs Date Time Temp Pulse Resp B/P (MAP) Pulse Ox O2 Delivery O2 Flow Rate FiO2 11/11/17 07:20 108 11/11/17 04:18 98.0 91 16 101/61 (74) 99 11/11/17 04:00 93 11/11/17 00:01 98.0 108 16 139/91 (107) 98 11/10/17 20:05 97.6 125 16 154/73 (100) 98 11/10/17 19:20 124 11/10/17 14:43 11/10/17 14:14 88 108/58 (75) 11/10/17 12:14 98 16 114/66 (82) 98 Room Air 11/10/17 11:24 88 16 124/63 (83) 98 Room Air 11/10/17 11:16 112 14 98 Room Air 11/10/17 11:11 96 18 136/70 (92) 98 Room Air 11/10/17 09:29 91 16 171/92 (118) 100 Room Air 11/10/17 09:16 98.7 145 24 141/84 (103) 100 I/O 11/10/17 11/10/17 11/10/17 11/11/17 11/11/17 11/11/17 07:00 15:00 23:00 07:00 15:00 23:00 Output Total 425 ml Balance -425 ml Output Urine Total 425 ml Physical Exam GENERAL: Alert WN, WD, NAD, pleasant, elderly male, slow to respond, hard of hearing HEAD: NC, ATline CV: RRR, 1-2 systolic and diastolic murmur, no rub. RESP: Diminished bases, faint expiratory wheeze, no rhonchi, symmetrical chest rise, nonlabored, able to speak in full sentences ABD: Soft, NT, ND, no masses, positive bowel tones PSYCH: A+O x3, mildly impaired, somewhat of poor historian, suspect mild dementia. Pleasant affect, appropriate speech, and mood. SKIN: Normal turgor, normal texture, no lesions, no rashes, brisk cap refill, even hair distribution Laboratory Laboratory Tests Test 11/10/17 09:40 11/10/17 14:08 11/10/17 17:25 White Blood Count 13.4 TH/MM3 Red Blood Count 5.05 MIL/MM3 Hemoglobin 10.8 GM/DL Hematocrit 34.4 % Mean Corpuscular Volume 68.0 FL Mean Corpuscular Hemoglobin 21.5 PG Mean Corpuscular Hemoglobin Concent 31.5 % Red Cell Distribution Width 19.3 % Platelet Count 430 TH/MM3 Mean Platelet Volume 7.9 FL Neutrophils (%) (Auto) 66.2 % Lymphocytes (%) (Auto) 21.8 % Monocytes (%) (Auto) 9.5 % Eosinophils (%) (Auto) 1.9 % Basophils (%) (Auto) 0.6 % Neutrophils # (Auto) 8.9 TH/MM3 Lymphocytes # (Auto) 2.9 TH/MM3 Monocytes # (Auto) 1.3 TH/MM3 Eosinophils # (Auto) 0.3 TH/MM3 Basophils # (Auto) 0.1 TH/MM3 CBC Comment DIFF FINAL Differential Comment Prothrombin Time 11.2 SEC Prothromb Time International Ratio 1.1 RATIO Activated Partial Thromboplast Time 27.1 SEC Blood Urea Nitrogen 17 MG/DL Creatinine 0.74 MG/DL Random Glucose 109 MG/DL Total Protein 7.1 GM/DL Albumin 2.8 GM/DL Calcium Level 8.3 MG/DL Alkaline Phosphatase 76 U/L Aspartate Amino Transf (AST/SGOT) 15 U/L Alanine Aminotransferase (ALT/SGPT) 16 U/L Total Bilirubin 0.5 MG/DL Sodium Level 140 MEQ/L Potassium Level 3.4 MEQ/L Chloride Level 105 MEQ/L Carbon Dioxide Level 24.3 MEQ/L Anion Gap 11 MEQ/L Estimat Glomerular Filtration Rate 100 ML/MIN Total Creatine Kinase 62 U/L 48 U/L 57 U/L Troponin I LESS THAN 0.02 NG/ML LESS THAN 0.02 NG/ML LESS THAN 0.02 NG/ML Imaging Last 24 hours Impressions Chest X-Ray 11/10/17 0942 Signed Impressions: CONCLUSION: Negative examination. Assessment and Plan Assessment and Plan #1 Atypical chest pain-ACS ruled out overnight. Monitor reviewed, heart rate between 80-110s. Spoke with Dr. Treviño made aware of medication change adding metoprolol 25 mg twice daily due to rapid ventricular response on admission. No further cardiac testing at this time. Keep follow-up appointment as previously scheduled tomorrow with Dr. Laureano. Discussed this with patient in length. Will also update patient's daughter once she arrived to the hospital. #2 Constipation-MiraLAX 17 g 1 pack before discharge. Follow up with PCP if symptoms persist. Sarai Albrecht Nov 11, 2017 08:18
--- NOTE | 2017-11-11 08:42 | HHI.DCPOC ---
Discharge Care Plan Diagnosis: (1) Chronic atrial fibrillation with RVR (2) Musculoskeletal chest pain (3) S/P cardiac pacemaker procedure Goals to Promote Your Health * To prevent worsening of your condition and complications * To maintain your health at the optimal level Directions to Meet Your Goals Take your medications as prescribed Follow your dietary instruction Follow activity as directed Keep your appointments as scheduled Take your immunizations and boosters as scheduled If your symptoms worsen call your PCP, if no PCP go to Urgent Care Center or Emergency Room Smoking is Dangerous to Your Health. Avoid second hand smoke Call the 24-hour hour crisis hotline for domestic abuse at Sarai Albrecht Nov 11, 2017 08:42
[2017-11-11] MEDS ORDERED: POLYETHYLENE GLYCOL 17 GM PKG PO ONE (08:45)
[2017-11-11] MEDS ORDERED: METO25TA3 PO (08:46)
[2017-11-11] MEDS ORDERED: MULTIVITAMIN-OPHTHALMIC 1 TAB PO SCH (09:00)
[2017-11-11] MEDS ORDERED: TAMSULOSIN HCL 0.4 MG CAP PO SCH (09:00)
[2017-11-11] MEDS ORDERED: VITAMIN E 400 UNIT CAP PO SCH (09:00)
[2017-11-11] MEDS ORDERED: CALCIUM CARBONATE 1.25 GM (CA 500 MG) TAB PO SCH (09:00)
[2017-11-11] MEDS ORDERED: ASPIRIN 325 MG TAB PO SCH (09:00)
[2017-11-11] MEDS ORDERED: NON-FORMULARY DRUG (Fish Oil-Cholecalciferol (Omega-3 Fish Oil/Vitamin) 1 CAP) PO SCH (09:00)
[2017-11-11] MEDS ORDERED: DILTIAZEM-CD 240 MG CAP ER PO SCH (09:00)
[2017-11-11] MEDS ORDERED: CLOPIDOGREL 75 MG TAB PO SCH (09:00)
[2017-11-11] MEDS ORDERED: ASPIRIN EC 81 MG TABEC PO SCH (09:00)
[2017-11-11] MEDS: SODIUM CHLORIDE 0.9% FLUSH 10 ML FLUSH IV FLUSH SCH (09:39)
[2017-11-11] MEDS: METOPROLOL TARTRATE 25 MG TAB PO SCH (09:40)
--- NOTE | 2017-11-11 11:00 | EKG ---
Date Performed: 11/10/2017 Time Performed: 17:20:54 PTAGE: 87 years EKG: NORMAL Sinus rhythm VENTRICULAR PACR NOTED NO PREVIOUS TRACING DOCTOR: Rashel Mccloud Interpretating Date/Time 11/11/2017 10:59:27
[2017-11-11 12:00] VITALS: BP 96/56; PULSE 93; RESP 20; TEMP 95.6; O2SAT 99
== END 2017-11-11 13:16 | disposition home or self-care (01) ==
LOC: NEPE 09:14 → NEDA 13:11 → NEPHCDU 14:33
DX: I48.2 Chronic atrial fibrillation (principal); R07.89 Other chest pain; K59.00 Constipation, unspecified; I73.9 Peripheral vascular disease, unspecified; I48.0 Paroxysmal atrial fibrillation; I49.5 Sick sinus syndrome; Z95.0 Presence of cardiac pacemaker; Z85.46 Personal history of malignant neoplasm of prostate; Z85.72 Personal history of non-Hodgkin lymphomas; K21.9 Gastro-esophageal reflux disease without esophagitis; I08.0 Rheumatic disorders of both mitral and aortic valves; G89.4 Chronic pain syndrome; R53.83 Other fatigue; R91.8 Other nonspecific abnormal finding of lung field; R00.2 Palpitations; I47.1 Supraventricular tachycardia; H26.9 Unspecified cataract; G62.9 Polyneuropathy, unspecified; I65.29 Occlusion and stenosis of unspecified carotid artery; I71.2 Thoracic aortic aneurysm, without rupture; I10 Essential (primary) hypertension; M19.90 Unspecified osteoarthritis, unspecified site; Z87.891 Personal history of nicotine dependence
CPT/HCPCS: 71045; 80053; 82550; 84484; 85025; 85610; 85730; 93005; 96374; 99285; G0378